=== PATIENT | male | born 2000 | race Hispanic/Latino ===

== ENCOUNTER 2021-02-09 19:32 | Emergency (ER) | payer MEDICAID ==
[~2021-02-09] VITALS: Ht 167.6 cm; Wt 93.4 kg
[2021-02-09 20:16] LABS: APPEARANCE,URINE Clear (CLEAR); BILIRUBIN,URINE Negative (NEGATIVE); COLOR,URINE Yellow (YELLOW); GLUCOSE, URINE (UA) Negative (NEGATIVE); KETONES,URINE 15 mg/dL (NEGATIVE); LEUKOCYTE ESTERASE ,URINE Negative (NEGATIVE); NITRATE,URINE Negative (NEGATIVE); OCCULT BLOOD,URINE Trace (NEGATIVE); PH,URINE 6.5 (5.0-8.0); PROTEIN,URINE Negative (NEGATIVE)
[2021-02-09] MEDS: 0.9%NACL 1000ML 1,000 ML IV ONE (20:21)
[2021-02-09 20:22] LABS: BASOPHILS % (AUTO) 0.1 % (0.0-5.0); LYMPHOCYTES % (AUTO) 9.9 % (21.0-51.0); MEAN CORPUSCULAR HEMOGLOBIN 29.3 pg (27.0-33.0); MEAN CORPUSCULAR HGB CONC 34.8 g/dL (32.0-36.0); MEAN CORPUSCULAR VOLUME 84.2 fL (80-100); MONOCYTES % (AUTO) 8.8 % (3.0-13.0); NEUTROPHILS % (AUTO) 80.9 % (40.0-77.0); PLATELET COUNT (AUTO) 115 K/uL (130-400); RED BLOOD CELL COUNT(AUTO) 4.99 MIL/uL (4.50-6.20); WHITE BLOOD COUNT (AUTO) 9.1 K/uL (4.8-10.8)
[2021-02-09 20:26] LABS: BACTERIA,URINE Rare /HPF (None Seen); RBC,URINE 0-1 /HPF (0-1); SQUAMOUS EPITHELIAL CELL,UR Rare /HPF (0-2); WBC,URINE 0-1 /HPF (0-1)
[2021-02-09 20:35] LABS: ALBUMIN 4.2 g/dL (3.5-5.0); BILIRUBIN,TOTAL 0.6 mg/dL (0.2-1.0); TOTAL PROTEIN, SERUM 8.3 g/dL (6.0-8.3)
[2021-02-09 20:45] LABS: CRP QUANTITATIVE 183.4 mg/L (0.00-9.0)
[2021-02-09] MEDS: POTASSIUM BICARB/CIT AC 25 MEQ TABLET.EFF PO ONE (21:42)
[2021-02-09] MEDS: CEFTRIAXONE 1G VIAL IVP ONE (21:42)
[2021-02-09] MEDS: AZITHROMYCIN 250 MG TABLET PO ONE (21:42)
[2021-02-09] MEDS: ALBUTEROL INHALER 90MCG/INH IH PRN (21:42)
[2021-02-09] MEDS ORDERED: ACET-2247 PO (21:51)
[2021-02-09] MEDS ORDERED: ALBU8.5H8 IH (21:51)
[2021-02-09] MEDS ORDERED: POTA-187 PO (21:51)
[2021-02-09] MEDS ORDERED: AMOX-429 PO (21:51)
[2021-02-09 22:03] VITALS: BP 145/78
== END 2021-02-09 22:08 | disposition home or self-care (01) ==
LOC: EDH 19:32
DX: J18.9 Pneumonia, unspecified organism (principal); E86.0 Dehydration; E87.6 Hypokalemia; Z79.899 Other long term (current) drug therapy
CPT/HCPCS: 36415; 71045; 80053; 81001; 85025; 86140; 86308; 87804 ×2; 87880; 96361; 96374; 99284; J0696; J7030